=== PATIENT | female | born 1995 | race Caucasian/White ===

== ENCOUNTER 2020-01-17 18:22 | Emergency (ER) | payer MEDICAID ==
[~2020-01-17] VITALS: Ht 147.3 cm; Wt 45.0 kg
[2020-01-17] MEDS ORDERED: SODIUM CHLORIDE 0.9% 1,000 ML IV ONE (19:07)
[2020-01-17 19:44] LABS: CLARITY URINE TURBID (CLEAR); COLOR URINE YELLOW (YELLOW); KETONES URINE NEGATIVE (NEGATIVE); LEUKOCYTE ESTERASE URINE 1+ (NEGATIVE); NITRITE URINE NEGATIVE (NEGATIVE); OCCULT BLOOD URINE NEGATIVE (NEGATIVE); PH URINE 8.5 (4.5-8.0); PROTEIN URINE TRACE (NEGATIVE); SPECIFIC GRAVITY URINE 1.025 (1.005-1.030)
[2020-01-17 19:45] LABS: BASOPHILS % 0.6 % (0.0-2.0); EOSINOPHILS % 1.8 % (0.0-5.0); HEMATOCRIT. 38.5 % (36.0-48.0); HEMOGLOBIN. 13.3 g/dL (12.0-16.0); MEAN CORPUSCULAR HEMOGLOBIN 29.6 pg (28.0-32.0); MEAN CORPUSCULAR VOLUME 85.7 fL (81.0-99.0); MONOCYTES % 7.5 % (2.0-8.0); NEUTROPHILS % 80.1 % (40.0-76.0); PLATELET 246 x1000/uL (130-400); RED BLOOD CELL COUNT 4.49 mill/uL (4.2-5.4); RED CELL DISTRIBUTION WIDTH 12.3 % (11.6-14.6)
[2020-01-17 19:47] LABS: CHLORIDE 106 mEq/L (98-107)
[2020-01-17 20:25] LABS: *BENZODIAZEPINES SCREEN URINE NEGATIVE (NEGATIVE)
[2020-01-17 20:26] LABS: *BARBITURATES SCREEN URINE NEGATIVE (NEGATIVE); *COCAINE SCREEN URINE NEGATIVE (NEGATIVE); CANNABINOID URINE SCREEN NEGATIVE (NEGATIVE); METHADONE URINE SCREEN NEGATIVE (NEGATIVE); OPIATES URINE SCREEN NEGATIVE (NEGATIVE); PHENCYCLIDINE URINE SCREEN NEGATIVE (NEGATIVE)
[2020-01-17 20:27] LABS: *AMPHETAMINES SCREEN URINE NEGATIVE (NEGATIVE)
[2020-01-17 21:20] VITALS: BP 115/76
== END 2020-01-17 21:25 | disposition home or self-care (01) ==
LOC: ER 18:22
DX: R00.2 Palpitations (principal)
CPT/HCPCS: 36415; 71045; 80048; 80305; 81003; 85025; 93005; 99285; J7030

== ENCOUNTER 2021-07-14 06:47 | Emergency (ER) | payer OTHER, MEDICAID ==
[~2021-07-14] VITALS: Ht 162.6 cm; Wt 49.0 kg
[2021-07-14 12:40] VITALS: BP 103/67
== END 2021-07-14 12:43 | disposition home or self-care (01) ==
LOC: ER 06:47
DX: R00.1 Bradycardia, unspecified (principal); I47.1 Supraventricular tachycardia
CPT/HCPCS: 93005; 99285

== ENCOUNTER 2024-08-29 06:32 | Emergency (ER) | payer MEDICAID, OTHER ==
[~2024-08-29] VITALS: Ht 149.9 cm; Wt 45.0 kg
[2024-08-29 06:35] VITALS: O2SAT 99
[2024-08-29] MEDS: SODIUM CHLORIDE 0.9% 1,000 ML IV ONE (07:29)
[2024-08-29 07:30] LABS: BASOPHILS % 0.6 % (0.0-2.0); DIFFERENTIAL COMMENT 0; EOSINOPHILS % 1.3 % (0.0-5.0); HEMATOCRIT. 33.9 % (36.0-48.0); HEMOGLOBIN. 10.6 g/dL (12.0-16.0); LYMPHOCYTES % 20.1 % (20.0-50.0); MEAN CORPUSCULAR HEMOGLOBIN 24.4 pg (28.0-32.0); MEAN CORPUSCULAR HGB CONC 31.4 g/dL (31.0-37.0); MEAN CORPUSCULAR VOLUME 77.9 fL (81.0-99.0); MEAN PLATELET VOLUME 8.2 fl (7.4-10.4); MONOCYTES % 7.1 % (2.0-8.0); NEUTROPHILS % 70.9 % (40.0-76.0); PLATELET 277 x1000/uL (130-400); RED BLOOD CELL COUNT 4.35 mill/uL (4.2-5.4); RED CELL DISTRIBUTION WIDTH 15.2 % (11.6-14.6); WHITE BLOOD COUNT 8.4 x1000/uL (4.5-11.0)
[2024-08-29 07:32] LABS: CHLORIDE 108 mEq/L (98-107); POTASSIUM 3.5 mEq/L (3.5-5.1); SODIUM 137 mEq/L (136-145)
[2024-08-29 07:33] LABS: CARBON DIOXIDE 20 mEq/L (21-32)
[2024-08-29 07:34] LABS: CALCIUM 8.9 mg/dL (8.7-10.4)
[2024-08-29 07:38] LABS: CREATININE 0.6 mg/dL (0.6-1.0); GLUCOSE 107 mg/dL (70-105)
[2024-08-29 07:40] LABS: TROPONIN I HIGH SENSITIVITY 6 ng/L (3.0-34)
[2024-08-29 07:43] LABS: THYROID STIMULATING HORMONE 1.01 uIU/mL (0.55-4.78)
[2024-08-29 07:45] LABS: HCG SCREEN NEGATIVE
[2024-08-29 08:07] LABS: UREA NITROGEN BLOOD < 5 mg/dL (9-23)
[2024-08-29 08:51] VITALS: BP 117/92; PULSE 110; RESP 16; TEMP 36.61404; O2SAT 99
== END 2024-08-29 09:51 | disposition home or self-care (01) ==
LOC: ER 06:32
DX: R00.2 Palpitations (principal)
CPT/HCPCS: 99285; 96360; 71045; 80048; 84703; 83880; 84443; 85025; 85379; 84484; 36415; 93005; J7030